=== PATIENT | female | born 1980 | race Caucasian/White ===

== ENCOUNTER → 2016-08-08 | Outpatient (CLI) | payer BC ==
[~2016-08-08] MED LIST: FERR1TAB61 PO; LEVO5TAB2 PO; MTR600X PO; OXYC5TAB PO; PRENTAB26 PO; RANI1TAB75 PO
--- NOTE | 2016-08-08 13:12 | MAMMOGRAPHY REPORT ---
ULTRASOUND OF RIGHT BREAST: 08/08/2016 CLINICAL HISTORY: The patient reports she has been breast-feeding for almost 7 months, and has felt a lump behind her right nipple for approximately 1-1.5 months. At times she feels burning in this r egion. She denies any bloody nipple discharge or other complaints. The physician order reports the lump measures approximately 1.5 cm based on palpation. COMPARISON: No prior exams were available for comparison. TECHNIQUE: Real-time targeted ultrasound of the right breast was performed. FINDINGS: Mammograms are not obtained as the patient is breast-feeding. Real-time, high resolution t argeted ultrasound was performed of the right subareolar breast in the region of the lump pointed ou t by the patient. There are expected lactational changes in this region, without evidence of a susp icious mass or other suspicious sonographic abnormality. An oval circumscribed anechoic mass with a small amount of echogenic debris measuring 4-5 mm is seen within the right 11 to 12:00 subareolar r egion. A similar appearing round circumscribed mass with echogenic debris is seen within the right 7:00 subareolar region, measuring 5 x 5 mm. These are benign and consistent with complicated cysts. An oval anechoic benign cyst measuring 4 mm is also seen within the right 10:00 periareolar breast . IMPRESSION: ACR BI-RADS CATEGORY 2: BENIGN Expected lactational changes with no suspicious sonographic abnormality at the site of the palpable right subareolar breast lump. There is no sonographic evidence of malignancy. Recommend clinical fo llow-up; the patient was advised to return to her physician if the lump clinically increases in size or for any other concerning findings. If the lump persists after the patient has discontinued jessica st feeding, consider diagnostic mammograms and possible repeat ultrasound at that time. The patient was verbally notified of the results. Scarlet Campuzano M.D. ah/:08/08/2016 11:20:50 Women'S Studies Professor: Dilia BAINS)(eB), [facility] letter sent: Normal 1/2 BI-RADS Code: ACR BI-RADS Category 2: Benign
== END | disposition home or self-care (01) ==
LOC: C.MAMM 09:26
PROVIDERS: ATTEND Obstetrics & Gynecology
DX: N63 Unspecified lump in breast (principal)

== ENCOUNTER 2017-07-28 16:17 | Emergency (ER) | payer OTHER, BC ==
[~2017-07-28] VITALS: Ht 167.6 cm; Wt 66.3 kg
[2017-07-28 16:21] VITALS: BP 119/81; PULSE 64; TEMP 36.6; O2SAT 98; Ht 167.6 cm; Wt 66.3 kg
[2017-07-28] MEDS ORDERED: MULT-506 PO (16:32)
--- NOTE | 2017-07-28 22:54 | EMERGENCY ROOM VISIT NOTE ---
History First contact with patient: 16:24 Chief Complaint: BITE Stated Complaint: DOG BITE History of Present Illness The patient is a 36 year old female who presents to the Emergency Room with complaints of dog bite injury to the left side of her face. 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 Evidently there was a pit bull at the home, that ultimately jumped up and struck into the left side of the patient 's face. The patient herself is up-to-date on her tetanus. She does not have chronic medical disease. There is no significant laceration or puncture wounds. She rates her current discomfort a 05/20. Dogbite form has been completed. Review of Systems More than 6 systems were reviewed and otherwise negative with the exception of history of present illness. Past Medical/Surgical History Medical Problems: (1) Chronic rhinitis (2) Delivery by elective section (3) Hx of T11 fracture (4) Needs injection Family History FHx: diabetes FHx: heart disease FHx: lung disease Social History Smoking Status: Former Smoker Drug Use: none Marital Status: Occupation Status: employed Current/Historical Medications Scheduled Multivitamin (Multivitamin), 1 TAB PO DAILY Physical Exam Vital Signs Date Time Temp Pulse Resp B/P (MAP) Pulse Ox O2 Delivery O2 Flow Rate FiO2 18 16:21 36.6 64 18 119/81 98 Room Air Physical Exam VITALS: Vitals are noted on the nurse's note and reviewed by myself. Vital signs stable. GENERAL: Well-developed, well-nourished, white female, who is in no acute distress and resting comfortably. Patient is cooperative with the examination. HEAD: Normocephalic atraumatic. MOUTH: Mucous membranes moist. Tonsils are not enlarged. Pharynx without erythema, blood, or exudate. Uvula midline. Airway patent. NEURO: Patient was alert and oriented to person place and time. SKIN: The skin was with early ecchymosis to the left side of the face at the angle of the mandible. There is no crepitus noted. No significant abrasion or puncture wounds to this area. Medical Decision & Procedures ED Course Physical exam and history were performed. Nursing notes, EMR, and Medication List were personally reviewed. Patient appears to have been bitten along the left side face by a dog while working today. The area is with some erythema but no significant breaking of the skin, and overall the patient appears well. She was offered ibuprofen and Tylenol, but felt well without these. Dog bite form was completed. The patient may use [id number] analgesics. She was otherwise invited back to the ER with any new, worsening, or concerning symptoms. The chart was completed utilizing [employer] Speech Voice Recognition Software. Grammatical errors, random word insertions, pronoun errors, and incomplete sentences are an occasional consequence of this system due to software limitations, ambient noise, and hardware issues. Any formal questions or concerns about the content, text, or information contained within the body of this dictation should be directly addressed to the provider for clarification. . Medical Decision Differential diagnosis includes, but is not limited to: Abrasion, laceration, dog bite, contusion, crush injury, and others Impression Primary Impression: Dog bite Departure Information Dispostion Home / Self-Care Condition GOOD Referrals No Doctor, Assigned Forms HOME CARE DOCUMENTATION FORM, IMPORTANT VISIT INFORMATION Patient Instructions My [facility] Additional Instructions You were seen and evaluated today on an emergency basis only. This is not a substitute for, or an effort to provide, complete comprehensive medical care. It is not possible to recognize and treat all injuries or illnesses in a single emergency department visit. For this reason it is recommended that you followup with your primary care physician with any ongoing or persisting symptoms. You are welcome to return to the emergency department anytime with new, worsening, or concerning symptoms.
== END 2017-07-28 16:47 | disposition home or self-care (01) ==
LOC: C.EDB 16:19 → C.EDD 16:47
DX: S00.87XA Other superficial bite of other part of head, initial encounter (principal); W54.0XXA Bitten by dog, initial encounter; Z83.3 Family history of diabetes mellitus; Z82.49 Family history of ischemic heart disease and other diseases of the circulatory system; Z87.891 Personal history of nicotine dependence